=== PATIENT | female | born 1970 | race Caucasian/White ===

== ENCOUNTER → 2017-02-10 | Outpatient (CLI) | payer OTHER ==
[~2017-02-10] MED LIST: FIBE1CHW2 PO; SERT50TA PO; TRAM-10 PO
[2017-02-17 02:28] LABS: ANAPLASMA PHAGOCYTOPHIL IGG <1:64 (<1:64); ANTI-CENTROMERE AB <1.0 NEG AI (<1.0 NEG); ANTI-SS-A <1.0 NEG AI (<1.0 NEG); ANTI-SS-B <1.0 NEG AI (<1.0 NEG); DNA ds CRITHIDIA NEGATIVE (NEGATIVE); EHRLICHIA CHAFF IGG AB <1:64 (<1:64); EHRLICHIA CHAFF IGM AB <1:20 (<1:20); MICROSOMAL AB <1 IU/ML (<9); Sm Antibody <1.0 NEG AI (<1.0 NEG)
== END | disposition home or self-care (01) ==
LOC: EDBD 14:36 → C.LAB1850 14:36
PROVIDERS: ATTEND Internal Medicine Infectious Disease
DX: G62.9 Polyneuropathy, unspecified (principal)

== ENCOUNTER 2017-04-04 07:39 | Day surgery (SDC) | payer OTHER ==
[~2017-04-04] VITALS: Ht 170.2 cm; Wt 63.7 kg
[2017-04-04] VITALS (9 sets, daily range): BP systolic 88–128; BP diastolic 44–77; PULSE 62–82; TEMP 36.6–37.1; O2SAT 97–100; Ht 170.2 cm; Wt 63.7 kg
[2017-04-04] MEDS ORDERED: FIBE1CHW2 PO (08:09)
[2017-04-04] MEDS ORDERED: SERT50TA PO (08:09)
[2017-04-04] MEDS ORDERED: TRAM-10 PO (08:09)
--- NOTE | 2017-04-04 09:23 | Discharge Instructions ---
Discharge Instructions Procedure Procedure Date: Apr 04, 2017. Reason for visit: Abnormal Cts Scan, Lymes Disease. Discharge Discharge Date: Apr 04, 2017. Discharge Diagnosis: s/p lumbar puncture Instructions Activity Recommendations: 1 Day-May resume regular activity, 48 Hours of decreased exertion Return to School/Work: no limitations Recommended Home Diet: No Limitations Provider Instructions: ACTIVITY RECOMMENDATIONS: * Rest today. * Resume regular activity in one day. MEDICATIONS: * May take Tylenol or Ibuprofen as needed for pain. DIET: * Resume previous diet. SPECIAL CARE INSTRUCTIONS: Call your doctor if: * Temperature above 101 degrees F. * Pain not relieved by pain medicine ordered. * Increased drainage or redness from incision. * Notify your doctor with any questions or concerns. Call your doctor or go to the nearest Emergency Department if you experience: * Increased chest pain or shortness of breath. FOLLOW UP VISIT: Follow-up with Referring Physician as scheduled. Allergies Coded Allergies: Fluconazole (Verified Allergy, Severe, itchy, 04/04/17) Uncoded Allergies: SULFA (Allergy, Severe, itchy, 04/04/17) [place] Recommendations: Call your doctor if: * Temperature above 101 degrees * Pain not relieved by pain medicine ordered * There is increased drainage or redness from any incision * You have any unanswered questions or concerns. Your Doctors Instructions noted above were prepared by provider Gato Adams. Patient Signature Section: Patient Instructions Signature Page Kanika Vidal Patient (or Guardian) Signature/Date: I have read and understand the instructions given to me by my caregivers. Caregiver/RN/Doctor Signature/Date: The above-named patient and/or guardian has received patient instructions on this date. + Original Patient Signature Page (only) stays with chart. Please make copy for patient.
--- NOTE | 2017-04-04 09:26 | DIAGNOSTIC IMAGING REPORT ---
FLUOROSCOPICALLY GUIDED LUMBAR PUNCTURE CLINICAL HISTORY: Lyme disease. PROCEDURE: The procedure, risks and benefits were discussed with the patient including the risk of spinal headache, bleeding and infection. The patient agreed to the procedure and informed written consent was obtained. The procedure was performed by Dr. Adams following a timeout. The right L4-L5 interlaminar space was targeted. Skin overlying the space was prepped and draped in sterile fashion and local anesthesia was achieved with 1% lidocaine. Under intermittent fluoroscopic guidance, a 3 1/2 inch 22-gauge spinal needle was directed into the thecal sac with immediate return of clear CSF. A total of 8 cc of cerebrospinal fluid was collected in 4 vials and sent to laboratory as ordered. The needle was removed. The patient tolerated the procedure well and no immediate complications were evident. IMPRESSION: Fluoroscopically guided lumbar puncture with collection of 8 cc of clear cerebrospinal fluid. CSF sent to laboratory for analysis as ordered. Electronically signed by: Gato Adams M.D. 04/04/2017 9:25 AM Dictated Date/Time: 04/04/2017 9:14 AM
[2017-04-04 10:01] LABS: CSF TOTAL PROTEIN 50.1 mg/dl (15.0-45.0)
[2017-04-04 10:18] LABS: CSF APPEARANCE CLEAR; CSF COLOR COLORLESS; CSF XANTHOCHROMIC NO XANTHOCHROMIA
[2017-04-10 09:39] LABS: ALBUMIN 4.4 g/dL (3.5-4.9); IGG SERUM 979 mg/dL (694-1618); LYME AB INDEX SCREENED NEGATIVE; MYELIN BASIC PROTEIN 663 <2.0 mcg/L (0.0-4.0)
== END 2017-04-04 13:00 | disposition home or self-care (01) ==
LOC: C.ACU 07:39
PROVIDERS: ATTEND Internal Medicine Infectious Disease
DX: A69.20 Lyme disease, unspecified (principal)